=== PATIENT | female | born 1940 | race Caucasian/White ===

== ENCOUNTER → 2017-08-30 | Outpatient (CLI) | payer MEDICARE, OTHER | LOC: LAB 09:04 | PROVIDERS: ATTEND Internal Medicine | DX: E27.40 Unspecified adrenocortical insufficiency (principal) ==

== ENCOUNTER → 2017-09-06 | Outpatient (CLI) | payer MEDICARE, OTHER ==
[~2017-09-06] VITALS: Ht 170.2 cm; Wt 70.3 kg
[~2017-09-06] MED LIST: COSYNTROPIN 0.25 MG/ML (CORTROSYN) VIAL IV ONE
[2017-09-06 09:50] VITALS: BP 122/90
== END ==
LOC: SDC 07:32
PROVIDERS: ATTEND Internal Medicine
DX: E27.40 Unspecified adrenocortical insufficiency (principal)
CPT/HCPCS: 36415; 82533; 96372

== ENCOUNTER 2017-12-06 09:22 | Emergency (ER) | payer MEDICARE, OTHER ==
[~2017-12-06] VITALS: Ht 170.2 cm; Wt 68.0 kg
--- OUTSIDE RECORDS SUMMARY | 2017-12-06 09:29 | XMS REPORT ---
Author Author JOSE MURGUIA [facility] Address [address] [place] [address] Care Team Providers Care Process Lead Name Role Phone JOSE MURGUIA Unavailable PROBLEMS Type Condition ICD9-CM Code [id number] Code Onset Dates Condition Status SNOMED Code Problem History of thyroid disease Z86.39 Active 030000618 Problem Sacrococcygeal disorders, not elsewhere classified M53.3 Active 161477867 Problem Lumbago with sciatica, right side M54.41 Active 232915749 Problem Benign essential hypertension I10 Active 3449981 Problem Chronic fatigue R53.82 Active 65573096 Problem Hypertriglyceridemia E78.1 Active 070390138 Problem Neuropathy G62.9 Active 923789359 ALLERGIES No Known Allergies SOCIAL HISTORY Never Assessed PLAN OF CARE Activity Details Follow Up pending lab results Reason: VITAL SIGNS Height 65 in 2016-11-29 Weight 140.6 lbs 2016-11-29 Temperature 97.1 degrees Fahrenheit 2016-11-29 Heart Rate 72 bpm 2016-11-29 Respiratory Rate 18 2016-11-29 BMI 23.39 kg/m2 2016-11-29 Blood pressure systolic 128 mmHg 2016-11-29 Blood pressure diastolic 78 mmHg 2016-11-29 MEDICATIONS Medication Instructions Dosage Frequency Start Date End Date Duration Status Bystolic 10 MG Orally Once a day 1 tablet 24h Active HydrALAZINE HCl 25 MG Orally as directed- only when B/P is greater than 180/ Active Gabapentin 300 MG Orally Three times a day 1 capsule 8h Active Ondansetron 4 MG Orally every 8 hrs 1 tablet on the tongue and allow to dissolve 8h Active RESULTS Name Result Date Reference Range THYROID ANTIBODIES 2016-11-29 Thyroid Peroxidase (TPO) Ab 11 0-34 Thyroglobulin Antibody CBC 2016-11-29 WBC 7.3 3.4-10.8 RBC 4.04 3.77-5.28 Hemoglobin 11.7 11.1-15.9 Hematocrit 34.7 34.0-46.6 MCV 86 79-97 MCH 29.0 26.6-33.0 MCHC 33.7 31.5-35.7 RDW 13.9 12.3-15.4 Platelets 266 150-379 Neutrophils 62 Lymphs 32 Monocytes 6 Eos 0 Basos 0 Immature Cells Neutrophils (Absolute) 4.5 1.4-7.0 Lymphs (Absolute) 2.3 0.7-3.1 Monocytes(Absolute) 0.4 0.1-0.9 Eos (Absolute) 0.0 0.0-0.4 Baso (Absolute) 0.0 0.0-0.2 Immature Granulocytes 0 Immature Grans (Abs) 0.0 0.0-0.1 NRBC Hematology Comments: CMP 2016-11-29 Bilirubin, Total 0.5 0.0-1.2 THYROID ANTIBODIES 2016-11-29 Thyroid Peroxidase (TPO) Ab 11 0-34 Thyroglobulin Antibody 0.1 0.0-0.9 THYROID ANALYZER 2016-11-29 TSH 1.040 0.450-4.500 VITAMIN B12 2016-11-29 Vitamin B12 1802 211-946 CBC 2016-11-29 WBC 7.3 3.4-10.8 RBC 4.04 3.77-5.28 Hemoglobin 11.7 11.1-15.9 Hematocrit 34.7 34.0-46.6 MCV 86 79-97 MCH 29.0 26.6-33.0 MCHC 33.7 31.5-35.7 RDW 13.9 12.3-15.4 Platelets 266 150-379 Neutrophils 62 Lymphs 32 Monocytes 6 Eos 0 Basos 0 Neutrophils (Absolute) 4.5 1.4-7.0 Lymphs (Absolute) 2.3 0.7-3.1 Monocytes(Absolute) 0.4 0.1-0.9 Eos (Absolute) 0.0 0.0-0.4 Baso (Absolute) 0.0 0.0-0.2 Immature Granulocytes 0 Immature Grans (Abs) 0.0 0.0-0.1 VITAMIN D, 25-H 2016-11-29 Vitamin D, 25-Hydroxy 70.9 30.0-100.0 [facility] 2016-11-29 Glucose, Serum 94 65-99 BUN 10 8-27 Creatinine, Serum 0.83 0.57-1.00 eGFR If NonAfricn Am 68 >59 eGFR If Africn Am 79 >59 BUN/Creatinine Ratio 12 11-26 Sodium, Serum 133 134-144 Potassium, Serum 4.5 3.5-5.2 Chloride, Serum 92 96-106 Carbon Dioxide, Total 21 18-29 Calcium, Serum 9.9 8.7-10.3 Protein, Total, Serum 7.5 6.0-8.5 Albumin, Serum 4.8 3.5-4.8 Globulin, Total 2.7 1.5-4.5 A/G Ratio 1.8 1.2-2.2 Bilirubin, Total 0.5 0.0-1.2 Alkaline Phosphatase, S 86 39-117 AST (SGOT) 41 0-40 ALT (SGPT) 34 0-32 HEPATITIS PROFILE 2016-11-29 Hep A Ab, IgM Negative Negative HBsAg Screen Negative Negative Hep B Core Ab, IgM Negative Negative Hep C Virus Ab <0.1 0.0-0.9 Written Authorization 2016-11-29 Written Authorization PROCEDURES Procedure Date Ordered Result Body Site THER/PROPH/DIAG INJ, SC/IM November 29, 2016 ROUTINE VENIPUNCTURE 2016-11-29 N/A COMPLETE CBC W/AUTO DIFF WBC November 29, 2016 VITAMIN B-12 November 29, 2016 THYROGLOBULIN ANTIBODY November 29, 2016 B12, VITAMIN (UP TO 1000 MCG) November 29, 2016 ASSAY THYROID STIM HORMONE November 29, 2016 COMPREHEN METABOLIC PANEL November 29, 2016 MICROSOMAL ANTIBODY November 29, 2016 ASSAY OF VITAMIN D November 29, 2016 IMMUNIZATIONS Vaccine Route Administration Date Status B12, VITAMIN (UP TO 1000 MCG) IM Intramuscular November 29, 2016 Administered MEDICAL (GENERAL) HISTORY Type Description Date Medical History HTN Medical History Neuropathy 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
--- OUTSIDE RECORDS SUMMARY | 2017-12-06 09:29 | XMS REPORT ---
Author Author JANAY HUTCHINS Organization [facility] Address Unknown Phone Unavailable Care Team Providers Care Sample Case Porter Name Role Phone JANAY HUTCHINS Unavailable Unavailable PROBLEMS Type Condition ICD9-CM Code [id number] Code Onset Dates Condition Status SNOMED Code Problem History of thyroid disease Z86.39 Active 269842366 Problem Sacrococcygeal disorders, not elsewhere classified M53.3 Active 744598230 Problem Lumbago with sciatica, right side M54.41 Active 886936464 Problem Benign essential hypertension I10 Active 5591752 Problem Chronic fatigue R53.82 Active 36128574 Problem Hypertriglyceridemia E78.1 Active 721852231 Problem Neuropathy G62.9 Active 954501767 ALLERGIES No Information SOCIAL HISTORY Never Assessed PLAN OF CARE VITAL SIGNS MEDICATIONS No Known Medications RESULTS No Results PROCEDURES No Known procedures IMMUNIZATIONS No Known Immunizations MEDICAL (GENERAL) HISTORY Type Description Date Medical History HTN Medical History Neuropathy 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
--- OUTSIDE RECORDS SUMMARY | 2017-12-06 09:29 | XMS REPORT ---
Author Author OLIVIA THORNE Organization [facility] Address [address] [place] [address] Care Team Providers Care Aerial Survey Technician Name Role Phone OLIVIA THONRE Unavailable PROBLEMS Type Condition ICD9-CM Code YLU39-IC Code Onset Dates Condition Status SNOMED Code Problem History of thyroid disease Z86.39 Active 881611991 Problem Sacrococcygeal disorders, not elsewhere classified M53.3 Active 839164161 Problem Lumbago with sciatica, right side M54.41 Active 667530193 Problem Benign essential hypertension I10 Active 5200507 Problem Chronic fatigue R53.82 Active 18500052 Problem Hypertriglyceridemia E78.1 Active 537142650 Problem Neuropathy G62.9 Active 415511176 ALLERGIES No Known Allergies SOCIAL HISTORY Never Assessed PLAN OF CARE Activity Details Follow Up 4 Weeks. Reason:neuropathy VITAL SIGNS Height 65 in 2016-12-17 Weight 140.0 lbs 2016-12-17 Temperature 97.4 degrees Fahrenheit 2016-12-17 Heart Rate 76 bpm 2016-12-17 Respiratory Rate 18 2016-12-17 BMI 23.29 kg/m2 2016-12-17 Blood pressure systolic 136 mmHg 2016-12-17 Blood pressure diastolic 76 mmHg 2016-12-17 MEDICATIONS Medication Instructions Dosage Frequency Start Date End Date Duration Status Bystolic 10 mg Orally Once a day 1 tablet 24h 0 days Active Viactiv 500-500-40 MG-UNT-MCG Orally Once a day at night 3 tablet with a meal Active Ondansetron 4 MG Orally every 8 hrs 1 tablet on the tongue and allow to dissolve 8h 0 days Active Vitamin C 1000 MG Orally twice a day 1 tablet 12h Active Vitamin D3 5000 UNIT Orally Once a day 1 capsule 24h Active Garlic 1000 MG Orally Once a day 5 24h Active Biotin w/ Vitamins C & E 1250-7.5-7.5 MCG-MG-UNT Orally Once a day 2 24h Active HydrALAZINE HCl 25 MG Orally as directed- only when B/P is greater than 180/ 1 tablet with food 0 days Active Gabapentin 300 MG Orally Three times a day 2 capsules 8h 30 days Active Oregano 40 mg Orally Once a day 2 24h Active RESULTS No Results PROCEDURES No Known procedures IMMUNIZATIONS No Known Immunizations MEDICAL (GENERAL) HISTORY Type Description Date Medical History HTN Medical History Neuropathy 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
--- OUTSIDE RECORDS SUMMARY | 2017-12-06 09:30 | XMS REPORT ---
Author Author OLIVIA THORNE Organization [facility] Address [address] [place] [address] Care Team Providers Care Die Cast Die Maker Name Role Phone OLIVIA THORNE Unavailable PROBLEMS Type Condition ICD9-CM Code [id number] Code Onset Dates Condition Status SNOMED Code Problem History of thyroid disease Z86.39 Active 518242253 Problem Sacrococcygeal disorders, not elsewhere classified M53.3 Active 299048674 Problem Lumbago with sciatica, right side M54.41 Active 236770254 Problem Benign essential hypertension I10 Active 7040694 Problem Chronic fatigue R53.82 Active 81774696 Problem Hypertriglyceridemia E78.1 Active 693840337 Problem Neuropathy G62.9 Active 136222006 ALLERGIES Substance Reaction Event Type Date Status Lisinopril cough Drug Allergy Feb, Active ENCOUNTERS Encounter Location Date Diagnosis [address] [id number] [id number] Apr, Elevated serum creatinine R79.89 ; Sacrococcygeal disorders, not elsewhere classified M53.3 ; Lumbago with sciatica, right side M54.41 ; Verbosity and circumstantial detail obscuring reason for contact R46.7 ; Hypertriglyceridemia E78.1 ; Neuropathy G62.9 and Benign essential hypertension I10 [address] [id number] [id number] Mar, Elevated serum creatinine R79.[address] [id number] [id number] Mar, Thyroid disease E07.9 ; Chronic fatigue R53.82 ; Neuropathy G62.9 ; Benign essential hypertension I10 ; Sacrococcygeal disorders, not elsewhere classified M53.3 and Lumbago with sciatica, right side M54.[address] [id number] [id number] Feb, Neuropathy G62.9 [facility] [address] [id number] [id number] Feb, Neuropathy G62.9 ; Abnormal levels of other serum enzymes R74.8 ; Benign essential hypertension I10 and Hypertriglyceridemia E78.1 [facility] [address] [facility] [id number] [id number] January, Neuropathy G62.9 ; Benign essential hypertension I10 and Abnormal levels of other serum enzymes R74.8 [facility] [address] [facility] [id number] [address] Dec, [facility] [id number] [id number] Dec, Neuropathy G62.9 and Benign essential hypertension I10 [address] [facility] [address] [id number] [place] [id number] Nov, Abnormal levels of other serum enzymes R74.8 and Benign essential hypertension I10 [facility] [address] [id number] [id number] Nov, History of thyroid disease Z86.39 ; Confusion R41.0 ; Chronic fatigue R53.82 ; Benign essential hypertension I10 and Neuropathy G62.[address] [facility] [address] [id number] [place] [id number] Nov, [address] [id number] [place] [id number] Nov, Abnormal levels of other serum enzymes R74.8 IMMUNIZATIONS No Known Immunizations SOCIAL HISTORY Never Assessed REASON FOR VISIT Neuropathy follow up Venkat VELASQUEZ PLAN OF CARE Activity Details Follow Up 1 Months Reason:CHM neuropathy/HTN VITAL SIGNS Height 65 in 2017-02-13 Weight 150.1 lbs 2017-02-13 Temperature 98.3 degrees Fahrenheit 2017-02-13 Heart Rate 64 bpm 2017-02-13 Respiratory Rate 18 2017-02-13 BMI 24.98 kg/m2 2017-02-13 Blood pressure systolic 128 mmHg 2017-02-13 Blood pressure diastolic 70 mmHg 2017-02-13 MEDICATIONS Medication Instructions Dosage Frequency Start Date End Date Duration Status Biotin w/ Vitamins C & E 1250-7.5-7.5 MCG-MG-UNT Orally Once a day 2 24h Active Bystolic 10 mg Orally Once a day 1 tablet 24h 0 days Active Gabapentin 300 MG Orally Three times a day 2 capsules 8h Active Garlic 1000 MG Orally Once a day 5 24h Active HydrALAZINE HCl 25 MG Orally as directed- only when B/P is greater than 180/ 1 tablet with food 0 days Active Viactiv 500-500-40 MG-UNT-MCG Orally Once a day at night 3 tablet with a meal Active Ondansetron 4 MG Orally every 8 hrs 1 tablet on the tongue and allow to dissolve 8h 0 days Active Amitriptyline HCl 25 MG Orally Once a day at bedtime 2 tablets 0 Active Vitamin D3 5000 UNIT Orally Once a day 1 capsule 24h Active Oregano 40 mg Orally Once a day 2 24h Active Vitamin C 1000 MG Orally twice a day 1 tablet 12h Active RESULTS No Results PROCEDURES No Known procedures INSTRUCTIONS MEDICATIONS ADMINISTERED No Known Medications MEDICAL (GENERAL) HISTORY Type Description Date Medical History HTN Medical History Neuropathy 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
--- OUTSIDE RECORDS SUMMARY | 2017-12-06 09:30 | XMS REPORT ---
Author Author OLIVIA THORNE Organization [facility] Address [address] [place] [address] Care Team Providers Care Egg Processing Supervisor Name Role Phone OLIVIA HTORNE Unavailable PROBLEMS Type Condition ICD9-CM Code [id number] Code Onset Dates Condition Status SNOMED Code Problem History of thyroid disease Z86.39 Active 937647455 Problem Sacrococcygeal disorders, not elsewhere classified M53.3 Active 905038600 Problem Lumbago with sciatica, right side M54.41 Active 709946470 Problem Benign essential hypertension I10 Active 1488186 Problem Chronic fatigue R53.82 Active 59043746 Problem Hypertriglyceridemia E78.1 Active 493157733 Problem Neuropathy G62.9 Active 611050761 ALLERGIES No Known Allergies SOCIAL HISTORY Never Assessed PLAN OF CARE Activity Details Follow Up 4 Weeks Reason:CHM Neuropathy VITAL SIGNS Height 65 in 2017-01-16 Weight 148.2 lbs 2017-01-16 Temperature 97.6 degrees Fahrenheit 2017-01-16 Heart Rate 60 bpm 2017-01-16 Respiratory Rate 18 2017-01-16 BMI 24.66 kg/m2 2017-01-16 Blood pressure systolic 130 mmHg 2017-01-16 Blood pressure diastolic 60 mmHg 2017-01-16 MEDICATIONS Medication Instructions Dosage Frequency Start Date End Date Duration Status Garlic 1000 MG Orally Once a day 5 24h Active Biotin w/ Vitamins C & E 1250-7.5-7.5 MCG-MG-UNT Orally Once a day 2 24h Active Oregano 40 mg Orally Once a day 2 24h Active Bystolic 10 mg Orally Once a day 1 tablet 24h 0 days Active Vitamin D3 5000 UNIT Orally Once a day 1 capsule 24h Active Vitamin C 1000 MG Orally twice a day 1 tablet 12h Active Amitriptyline HCl 25 MG Orally Once a day at bedtime 1 tablet January, 30 day(s) Active HydrALAZINE HCl 25 MG Orally as directed- only when B/P is greater than 180/ 1 tablet with food 0 days Active Gabapentin 300 MG Orally Three times a day 2 capsules 8h 30 days Active Viactiv 500-500-40 MG-UNT-MCG Orally Once a day at night 3 tablet with a meal Active Ondansetron 4 MG Orally every 8 hrs 1 tablet on the tongue and allow to dissolve 8h 0 days Active RESULTS Name Result Date Reference Range LIPID PANEL 2017-01-16 Cholesterol, Total 183 100-199 Triglycerides 253 0-149 HDL Cholesterol 58 >39 VLDL Cholesterol Varinder 51 5-40 LDL Cholesterol Calc 74 0-99 Comment: CMP 2017-01-16 Glucose, Serum 78 65-99 BUN 17 8-27 Creatinine, Serum 0.82 0.57-1.00 eGFR If NonAfricn Am 69 >59 eGFR If Africn Am 79 >59 BUN/Creatinine Ratio 21 12-28 Sodium, Serum 141 134-144 Potassium, Serum 4.0 3.5-5.2 Chloride, Serum 102 96-106 Carbon Dioxide, Total 23 18-29 Calcium, Serum 9.4 8.7-10.3 Protein, Total, Serum 7.2 6.0-8.5 Albumin, Serum 4.6 3.5-4.8 Globulin, Total 2.6 1.5-4.5 A/G Ratio 1.8 1.2-2.2 Bilirubin, Total 0.3 0.0-1.2 Alkaline Phosphatase, S 86 39-117 AST (SGOT) 24 0-40 ALT (SGPT) 15 0-32 PROCEDURES Procedure Date Ordered Result Body Site COMPREHEN METABOLIC PANEL January 16, 2017 VENIPUNCT, ROUTINE* January 16, 2017 LIPID PANEL January 16, 2017 IMMUNIZATIONS No Known Immunizations MEDICAL (GENERAL) HISTORY Type Description Date Medical History HTN Medical History Neuropathy 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
--- OUTSIDE RECORDS SUMMARY | 2017-12-06 09:30 | XMS REPORT ---
Author Author JOSE MURGUIA [facility] Address [address] [place] [address] Care Team Providers Care Front Office Director Name Role Phone JOSE MURGUIA Unavailable PROBLEMS Type Condition ICD9-CM Code [id number] Code Onset Dates Condition Status SNOMED Code Problem History of thyroid disease Z86.39 Active 594312460 Problem Sacrococcygeal disorders, not elsewhere classified M53.3 Active 672848307 Problem Lumbago with sciatica, right side M54.41 Active 217732797 Problem Benign essential hypertension I10 Active 7409350 Problem Chronic fatigue R53.82 Active 87135671 Problem Hypertriglyceridemia E78.1 Active 340744144 Problem Neuropathy G62.9 Active 555502356 ALLERGIES No Information SOCIAL HISTORY Never Assessed PLAN OF CARE VITAL SIGNS MEDICATIONS No Known Medications RESULTS No Results PROCEDURES Procedure Date Ordered Result Body Site ACUTE HEPATITIS PANEL November 29, 2016 IMMUNIZATIONS No Known Immunizations MEDICAL (GENERAL) HISTORY Type Description Date Medical History HTN Medical History Neuropathy 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
[2017-12-06 09:49] LABS: BASOPHILS % (AUTO) 0 % (0-10); EOSINOPHILS % (AUTO) 0 % (0-10); HEMATOCRIT 33 % (35-52); HEMOGLOBIN 11.3 G/DL (11.5-16.0); LYMPHOCYTES # (AUTO) 1.8 X 10^3 (1.0-4.0); LYMPHOCYTES % (AUTO) 15 % (12-44); MEAN CORPUSCULAR HEMOGLOBIN 30 PG (25-34); MEAN CORPUSCULAR HGB CONC 35 G/DL (32-36); MEAN CORPUSCULAR VOLUME 86 FL (80-99); MEAN PLATELET VOLUME 9.3 FL (7.4-10.4); MONOCYTES # (AUTO) 0.7 X 10^3 (0.0-1.0); MONOCYTES % (AUTO) 6 % (0-12); NEUTROPHILS # (AUTO) 9.7 X 10^3 (1.8-7.8); NEUTROPHILS % (AUTO) 80 % (42-75); PLATELET COUNT 269 10^3/uL (130-400); RED BLOOD COUNT 3.82 10^6/uL (4.35-5.85); RED CELL DISTRIBUTION WIDTH 13.2 % (10.0-14.5); WHITE BLOOD COUNT 12.2 10^3/uL (4.3-11.0)
[2017-12-06 09:50] LABS: BILIRUBIN,URINE NEGATIVE (NEGATIVE); CLARITY,URINE SLIGHTLY CLOUDY; COLOR,URINE YELLOW; GLUCOSE, URINE (UA) NEGATIVE (NEGATIVE); KETONES,URINE NEGATIVE (NEGATIVE); LEUKOCYTE ESTERASE ,URINE 2+ (NEGATIVE); NITRITE,URINE NEGATIVE (NEGATIVE); PH,URINE 6 (5-9); PROTEIN,URINE 1+ (NEGATIVE); UROBILINOGEN,URINE NORMAL (NORMAL)
[2017-12-06 10:01] LABS: BACTERIA,URINE FEW /HPF; YEAST,URINE N /HPF
[2017-12-06 10:06] LABS: ALBUMIN 4.6 GM/DL (3.2-4.5); BILIRUBIN,TOTAL 0.6 MG/DL (0.1-1.0); CALCIUM 10.1 MG/DL (8.5-10.1); CREATININE SERUM 1.06 MG/DL (0.60-1.30); POTASSIUM 3.3 MMOL/L (3.6-5.0); TOTAL PROTEIN 7.8 GM/DL (6.4-8.2)
--- NOTE | 2017-12-06 11:46 | ED GI ---
General Chief Complaint: Abdominal/GI Problems Stated Complaint: MULTIPLE COMPLAINTS Nursing Triage Note: TO ROOM [address] FERNANDEZ OFFICE. JOSE RAUL CALLED ET STATES SHE CAME TO HIM WITH ACUTE ONSET OF NAUSEA. FOUND PT TO HAVE TENDERNESS OVER THE GALLBLADDER REGION, FEVER OF 99, AND ACTING CONFUSED. ALSO STATES SHE HAD A CHIROPRACTOR MANIPULATE HER BACK 2 MONTHS AGO AND HAS HAD PERIODS OF INC WITH STOOL AND BLADDER SINCE. Sepsis Screen: No Definite Risk Source of Information: Patient Exam Limitations: No Limitations (SARTHAK CHEUNG MD) History of Present Illness Date Seen by Provider: Dec 06, 2017 Time Seen by Provider: 11:42 Initial Comments The patient is a 76-year-old white female referred here by Dr. Noguera's office. She is a very circuitous history psychotherapist counselor. She reports that she has had difficulties with low back pain and diarrhea since she had a manipulation 2 months ago. This was performed chiropractic office by a provider who was a former college linebacker. She has had 3-4 loose stools per day. She is had to give up eating fiber. She has seen no blood. She also states that she has spina bifida occulta. She apparently had right upper quadrant pain to palpation Dr. Noguera's office but exhibits none here. She now complains of a headache. Timing/Duration: Other Severity/Quality: Mild, Moderate Location: Suprapubic Radiation: No Radiation (SARTHAK CHEUNG MD) Allergies and Home Medications Allergies Coded Allergies: No Known Drug Allergies (Unverified , 09/06/17) Home Medications Cephalexin 500 Mg Capsule, 500 MG PO TID Prescribed by: JASMIN MOSS on 12/06/17 1423 Ondansetron 4 Mg Tab.rapdis, 4 MG SL Q4H PRN for NAUSEA/VOMITING-1ST LINE Prescribed by: JASMIN MOSS on 12/06/17 1423 Patient Home Medication List Home Medication List Reviewed: Yes (JASMIN MEANS MD) Review of Systems Constitutional: see HPI EENTM: No Symptoms Reported Respiratory: No Symptoms Reported Cardiovascular: No Symptoms Reported Gastrointestinal: See HPI Genitourinary: No Symptoms Reported Musculoskeletal: no symptoms reported Skin: no symptoms reported Psychiatric/Neurological: No Symptoms Reported Endocrine: No Symptoms Reported Hematologic/Lymphatic: No Symptoms Reported (SARTHAK CHEUNG MD) Past Nlnqwuv-Powziy-Mcoqpz Hx Patient Social History Recent Foreign Travel: No Contact w/Someone Who Travel: No Recent Infectious Disease Expo: No Recent Hopitalizations: No (SARTHAK CHEUNG MD) Immunizations Up To Date Date of Pneumonia Vaccine: Sep 02, 2015 (SARTHAK CHEUNG MD) Surgeries History of Surgeries: Yes Surgeries: Hysterectomy (SARTHAK CHEUNG MD) Respiratory History of Respiratory Disorde: No (SARTHAK CHEUNG MD) Cardiovascular History of Cardiac Disorders: Yes Cardiac Disorders: Hypertension (SARTHAK CHEUNG MD) Neurological Neurological Disorders: Neuropathy (SARTHAK CHEUNG MD) Reproductive System Hx Reproductive Disorders: No (SARTHAK CHEUNG MD) Genitourinary History of Genitourinary Disor: No (SARTHAK CHEUNG MD) Gastrointestinal History of Gastrointestinal Di: No (SARTHAK CHEUNG MD) Musculoskeletal History of Musculoskeletal Dis: Yes Musculoskeletal Disorders: Chronic Back Pain (SARTHAK CHEUNG MD) Endocrine History of Endocrine Disorders: No (SARTHAK CHEUNG MD) HEENT History of HEENT Disorders: No (SARTHAK CHEUNG MD) Cancer History of Cancer: No Cancer: Thyroid Did You Recieve Any Treatments: Yes Type of Tx Receive: Radiation (SARTHAK CHEUGN MD) Psychosocial History of Psychiatric Problem: No (SARTHAK CHEUNG MD) Integumentary History of Skin or Integumenta: No (SARTHAK CHEUNG MD) Blood Transfusions History of Blood Disorders: No (SARTHAK CHEUNG MD) Physical Exam Vital Signs VS - Last 72 Hours, by Label 12/06/17 12/06/17 12/06/17 09:45 10:51 14:29 Temp 99.3 99.7 98.0 Pulse 77 70 Resp 18 16 B/P (MAP) 135/57 (83) 149/73 Pulse Ox 97 98 (JASMIN MEANS MD) Vital Signs Capillary Refill : Less Than 3 Seconds (SARTHAK CHEUNG MD) General Appearance: WD/WN, no apparent distress HEENT: normal ENT inspection Neck: full range of motion Respiratory: chest non-tender, lungs clear, normal breath sounds, no respiratory distress, no accessory muscle use Cardiovascular: normal peripheral pulses, regular rate, rhythm, no edema, no gallop, no JVD, no murmur Gastrointestinal: normal bowel sounds, non tender, soft, no organomegaly, no pulsatile mass Extremities: normal range of motion, non-tender, normal inspection, no pedal edema, no calf tenderness Back: normal inspection, no CVA tenderness Neurologic/Psychiatric: neuropsychology division chief II-XII nml as tested, no motor/sensory deficits, alert, normal mood/affect, oriented x 3 Skin: normal color, warm/dry Lymphatic: no adenopathy (SARTHAK CHEUNG MD) Progress/Results/Core Measures Results/Orders Lab Results Laboratory Tests Test 12/06/17 09:35 12/06/17 09:40 Range/Units Urine Color YELLOW Urine Clarity SLIGHTLY CLOUDY Urine pH 6 5-9 Urine Specific [place] 1.015 L 1.016-1.022 Urine Protein 1+ H NEGATIVE Urine Glucose (UA) NEGATIVE NEGATIVE Urine Ketones NEGATIVE NEGATIVE Urine Nitrite NEGATIVE NEGATIVE Urine Bilirubin NEGATIVE NEGATIVE Urine Urobilinogen NORMAL NORMAL MG/DL Urine Leukocyte Esterase 2+ H NEGATIVE Urine RBC (Auto) NEGATIVE NEGATIVE Urine RBC NONE /HPF Urine WBC 2-5 /HPF Urine Squamous Epithelial Cells 5-10 /HPF Urine Crystals NONE /LPF Urine Bacteria FEW H /HPF Urine Casts NONE /LPF Urine Mucus SMALL H /LPF Urine Yeast N /HPF Urine Culture Indicated NO White Blood Count 12.2 H 4.3-11.0 10^3/uL Red Blood Count 3.82 L 4.35-5.85 10^6/uL Hemoglobin 11.3 L 11.5-16.0 G/DL Hematocrit 33 L 35-52 % Mean Corpuscular Volume 86 80-99 FL Mean Corpuscular Hemoglobin 30 25-34 PG Mean Corpuscular Hemoglobin Concent 35 32-36 G/DL Red Cell Distribution Width 13.2 10.0-14.5 % Platelet Count 269 130-400 10^3/uL Mean Platelet Volume 9.3 7.4-10.4 FL Neutrophils (%) (Auto) 80 H 42-75 % Lymphocytes (%) (Auto) 15 12-44 % Monocytes (%) (Auto) 6 0-12 % Eosinophils (%) (Auto) 0 0-10 % Basophils (%) (Auto) 0 0-10 % Neutrophils # (Auto) 9.7 H 1.8-7.8 X 10^3 Lymphocytes # (Auto) 1.8 1.0-4.0 X 10^3 Monocytes # (Auto) 0.7 0.0-1.0 X 10^3 Eosinophils # (Auto) 0.0 0.0-0.3 10^3/uL Basophils # (Auto) 0.0 0.0-0.1 10^3/uL Sodium Level 134 L 135-145 MMOL/L Potassium Level 3.3 L 3.6-5.0 MMOL/L Chloride Level 99 98-107 MMOL/L Carbon Dioxide Level 23 21-32 MMOL/L Anion Gap 12 5-14 MMOL/L Blood Urea Nitrogen 17 7-18 MG/DL Creatinine 1.06 0.60-1.30 MG/DL Estimat Glomerular Filtration Rate 50 BUN/Creatinine Ratio 16 Glucose Level 124 H 70-105 MG/DL Calcium Level 10.1 8.5-10.1 MG/DL Total Bilirubin 0.6 0.1-1.0 MG/DL Aspartate Amino Transf (AST/SGOT) 21 5-34 U/L Alanine Aminotransferase (ALT/SGPT) 16 0-55 U/L Alkaline Phosphatase 110 40-136 U/L Total Protein 7.8 6.4-8.2 GM/DL Albumin 4.6 H 3.2-4.5 GM/DL Lipase 30 8-78 U/L Thyroid Stimulating Hormone (TSH) 2.15 0.35-4.94 UIU/ML Free Thyroxine 0.93 0.70-1.48 NG/DL (JASMIN MEANS MD) My Orders Orders - JASMIN MEANS MD Lipase (12/06/17 12:20) Urine Culture (12/06/17 12:37) Thyroid Stimulating Hormone (12/06/17 12:48) Free T4 (Free Thyroxine) (12/06/17 12:48) Ketorolac Injection (Toradol Injection) (12/06/17 13:00) Ondansetron Injection (Zofran Injectio (12/06/17 13:00) Saline Lock/Iv-Start (12/06/17 12:49) Lactated Ringers (Lr 1000 Ml Iv Solution (12/06/17 12:49) Us Gallbladder [id number] (12/06/17 12:54) (JASMIN MEANS MD) Medications Given in ED Current Medications Medications Dose Ordered Sig/Earnestine Route Start Time Stop Time Status Last Admin Dose Admin Ketorolac Tromethamine 15 mg ONCE ONCE IVP 12/06/17 13:00 12/06/17 13:01 DC 12/06/17 12:57 15 MG Lactated Ringer's 1,000 ml @ 0 mls/hr Q0M ONCE IV 12/06/17 12:49 12/06/17 12:50 DC 12/06/17 12:56 1,000 MLS/HR Ondansetron HCl 4 mg ONCE ONCE IVP 12/06/17 13:00 12/06/17 13:01 DC 12/06/17 12:57 4 MG (JASMIN MEANS MD) Vital Signs/I&O Vital Sign - Last 12Hours 12/06/17 12/06/17 12/06/17 09:45 10:51 14:29 Temp 99.3 99.7 98.0 Pulse 77 70 Resp 18 16 B/P (MAP) 135/57 (83) 149/73 Pulse Ox 97 98 (JASMIN MEANS MD) Blood Pressure Mean: 83 Progress Note : Progress Note Care of this patient was assumed from Dr. Cheung at 18:10. Chart was reviewed along with labs and CT result. Patient was reportedly sent to the emergency room from Dr. Justin's office for further evaluation. Patient is unsure of the exact reasons for evaluation in the emergency room rather than outpatient evaluation. She thought perhaps he wanted to obtain an MRI. Patient reports having some lower extremity symptoms and bowel and bladder control problems after having a chiropractic treatment 2 months ago. I did speak with Dr. Noguera by phone. He was most concerned about questionable fever, nausea and right upper quadrant pain. He was concerned about gallbladder pathology. On my examination patient has no abdominal tenderness. Although patient's abdominal pain is better, she complains of persistent headache. Patient was treated with Toradol for headache, Zofran for nausea, and IV fluids. She felt much better after treatment. Abdominal symptoms were further evaluated with gallbladder ultrasound which showed no acute pathology. Patient was ultimately dismissed home. There are subtle indication of possible urinary tract infection. Keflex was prescribed. (JASMIN MEANS MD) Diagnostic Imaging Diagonstic Imaging: Ultrasound Plain Films/CT/US/NM/MRI: abdomen Comments NAME: [facility] REC#: [id number] PT STATUS: DEP ER : 1940 PHYSICIAN: JASMIN MEANS MD ADMIT DATE: 12/06/17/ER Signed Date of Exam: 12/06/17 US GALLBLADDER [id number] PROCEDURE: US Gallbladder. TECHNIQUE: Multiple real-time grayscale images were obtained over the right upper quadrant in various projections. INDICATION: Abdominal pain. FINDINGS: The pancreas is unremarkable. The liver is normal in size. No discrete liver mass is identified. The portal vein is patent and demonstrates normal direction of flow. The gallbladder is without stones or sludge. No wall thickening or pericholecystic fluid is seen. There is no biliary ductal dilatation. The right kidney is unremarkable. There is no ascites. IMPRESSION: Unremarkable right upper quadrant ultrasound. There is no evidence of cholelithiasis or acute cholecystitis. Dictated by: Dictated on workstation # [id number] Dict: 12/06/17 1406 Trans: 12/06/17 1501 Interpreted by: RENA KATHLEEN MD Electronically signed by: RENA KATHLEEN MD 12/06/17 1501 Diagonstic Imaging: CT Plain Films/CT/US/NM/MRI: abdomen, pelvis Comments CT abdomen and pelvis viewed by me and report reviewed. See report below: NAME: [facility] REC#: [id number] PT STATUS: DEP ER : 1940 PHYSICIAN: SARTHAK CHEUNG MD ADMIT DATE: 12/06/17/ER Signed Date of Exam: 12/06/17 CT ABDOMEN/PELVIS WO PROCEDURE: CT abdomen and pelvis without contrast. TECHNIQUE: Multiple contiguous axial images were obtained through the abdomen and pelvis without the use of intravenous contrast. INDICATION: Abdominal pain. FINDINGS: The lung bases are clear. The liver and gallbladder appear unremarkable. There is no biliary dilatation. The pancreas appears unremarkable. The spleen and adrenal glands appear unremarkable. The kidneys, ureters and bladder appear unremarkable. No urinary tract stone or obstructive change is seen. There is diverticulosis without evidence of diverticulitis. No evidence of appendicitis or other focal inflammatory process. Uterus is absent. The abdominal aorta appears normal in caliber. There is no free fluid, free air or adenopathy. There is a grade I/2 degenerative anterior listhesis of L4 and L5 with degenerative disc disease. IMPRESSION: 1. No acute abnormality seen in the abdomen and pelvis. 2. Degenerative changes with grade I/2 degenerative anterior listhesis of L4 and L5. 3. Diverticulosis without evidence of diverticulitis. Dictated by: Dictated on workstation # [id number] Dict: 12/06/17 1218 Trans: 12/06/17 1542 Interpreted by: EM BUSTOS DO Electronically signed by: EM BUSTOS DO 12/06/17 154 (JASMIN MEANS MD) Departure Impression Impression: Primary Impression: Right upper quadrant pain Additional Impressions: Nausea Urinary tract infection Qualified Codes: N39.0 - Urinary tract infection, site not specified Acute headache Qualified Codes: R51 - Headache Disposition: 01 HOME, SELF-CARE Condition: Improved Departure-Patient Inst. Decision time for Depature: 14:18 (JASMIN MEANS MD) Referrals: BRUCE NOGUERA DO (PCP/Family) Primary Care Physician Patient Instructions: Acute Abdomen (Belly Pain), Adult (DC), Urinary Tract Infection, Adult (DC) Add. Discharge Instructions: Drink plenty of clear liquids. Gradually advance your diet with small quantities of bland food as tolerated. Use Zofran (ondansetron) as prescribed for nausea and vomiting. Complete your antibiotics as prescribed and follow-up with Dr. Noguera early next week. Return to care if symptoms worsen. You may take ibuprofen up to 400 mg and or Tylenol (acetaminophen) up to 1000 mg 2 or 3 times a day for headache if needed. Discuss your bowel or bladder control issues, diarrhea, and leg symptoms with Dr. Noguera at your follow-up appointment. All discharge instructions reviewed with patient and/or family. Voiced understanding. Scripts Cephalexin (Keflex) 500 Mg Capsule 500 MG PO TID, #20 CAP Prov: JASMIN MEANS MD 12/06/17 Ondansetron (Zofran Odt) 4 Mg Tab.rapdis 4 MG SL Q4H Y for NAUSEA/VOMITING-1ST LINE, #10 TAB Prov: JASMIN MEANS MD 12/06/17 Copy Copies To 1: BRUCE NOGUERA RODNEY K MD Dec 06, 2017 11:46 JASMIN MEANS MD Dec 06, 2017 14:24
--- NOTE | 2017-12-06 12:25 | Diagnostic Imaging Report ---
PROCEDURE: CT abdomen and pelvis without contrast. TECHNIQUE: Multiple contiguous axial images were obtained through the abdomen and pelvis without the use of intravenous contrast. INDICATION: Abdominal pain. FINDINGS: The lung bases are clear. The liver and gallbladder appear unremarkable. There is no biliary dilatation. The pancreas appears unremarkable. The spleen and adrenal glands appear unremarkable. The kidneys, ureters and bladder appear unremarkable. No urinary tract stone or obstructive change is seen. There is diverticulosis without evidence of diverticulitis. No evidence of appendicitis or other focal inflammatory process. Uterus is absent. The abdominal aorta appears normal in caliber. There is no free fluid, free air or adenopathy. There is a grade I/2 degenerative anterior listhesis of L4 and L5 with degenerative disc disease. IMPRESSION: 1. No acute abnormality seen in the abdomen and pelvis. 2. Degenerative changes with grade I/2 degenerative anterior listhesis of L4 and L5. 3. Diverticulosis without evidence of diverticulitis. Dictated by: Dictated on workstation # [id number]
[2017-12-06] MEDS ORDERED: LACTATED RINGERS 1,000 ML IV ONE (12:49)
[2017-12-06] MEDS ORDERED: KETOROLAC 30 MG/ML VIAL IVP ONE (13:00)
[2017-12-06] MEDS ORDERED: ONDANSETRON 4 MG/2 ML (SDV) Z0FRAN IVP ONE (13:00)
[2017-12-06 13:23] LABS: FREE T4 (FREE THYROXINE) 0.93 NG/DL (0.70-1.48)
--- NOTE | 2017-12-06 14:10 | Diagnostic Imaging Report ---
PROCEDURE: US Gallbladder. TECHNIQUE: Multiple real-time grayscale images were obtained over the right upper quadrant in various projections. INDICATION: Abdominal pain. FINDINGS: The pancreas is unremarkable. The liver is normal in size. No discrete liver mass is identified. The portal vein is patent and demonstrates normal direction of flow. The gallbladder is without stones or sludge. No wall thickening or pericholecystic fluid is seen. There is no biliary ductal dilatation. The right kidney is unremarkable. There is no ascites. IMPRESSION: Unremarkable right upper quadrant ultrasound. There is no evidence of cholelithiasis or acute cholecystitis. Dictated by: Dictated on workstation # [id number]
[2017-12-06] MEDS ORDERED: CEPH-507 PO (14:23)
[2017-12-06] MEDS ORDERED: ONDA4TAB8 SL (14:23)
[2017-12-06 14:29] VITALS: BP 149/73
== END 2017-12-06 14:29 | disposition home or self-care (01) ==
LOC: EDUNIT# 09:22 → ER 09:26
DX: N39.0 Urinary tract infection, site not specified (principal); R51 Headache; I10 Essential (primary) hypertension; Q76.0 Spina bifida occulta; Z85.850 Personal history of malignant neoplasm of thyroid; Z90.710 Acquired absence of both cervix and uterus
CPT/HCPCS: 36415; 74176; 76705; 80053; 81000; 83690; 84439; 84443; 85025; 87088; 96361; 96374; 96375

== ENCOUNTER → 2017-12-12 | Outpatient (CLI) | payer MEDICARE, OTHER ==
[~2017-12-12] MED LIST changes: +CEPH-507 PO; -COSYNTROPIN 0.25 MG/ML (CORTROSYN) VIAL IV ONE; +ONDA4TAB8 SL
--- NOTE | 2017-12-12 13:04 | Diagnostic Imaging Report ---
PROCEDURE: MRI lumbar spine. TECHNIQUE: Multiplanar, multisequence MRI of the lumbar spine was performed without contrast. INDICATION: Back pain. There are no previous MRI examinations available for comparison. FINDINGS: The recent CT abdomen/pelvis exam of 12/06/17 did note a grade 1-2 spondylolisthesis of L4 with respect to L5. On the T2 sagittal images, the grade 1-2 spondylolisthesis of L4 with respect to L5 is again evident. There is also marked narrowing and desiccation of the disc at this level. Furthermore, there does appear to be severe trefoil stenosis at this level. The AP diameter of the thecal sac is narrowed to approximately 5.2 mm. There is also fairly severe narrowing of the neuroforamen bilaterally at this level. At the L5-S1 level, there is a disc bulge eccentric to the right. The disc does not produce central stenosis but is in close proximity to the exiting right nerve root and may encroach upon the nerve root. At the L3-L4 level, there is a slight disc bulge centrally. The AP diameter of the thecal sac is narrowed to 11.5 mm. There is only mild narrowing of the neuroforamen bilaterally. At L1-L2 and L2-L3, there is no evidence for spinal stenosis or nerve root encroachment. There is no abnormal signal arising from the cord or the vertebral bodies to indicate an acute abnormality. There is no sign of a paraspinal mass. IMPRESSION: 1. There is a grade 1-2 spondylolisthesis of L4 with respect to L5. There is also degenerative disc disease at this level and there is severe trefoil stenosis. There is also narrowing of the neuroforamen bilaterally. 2. There is a disc bulge eccentric to the right at L5-S1. While there is no evidence for central stenosis at this level, there may be encroachment of the exiting right nerve root. 3. The remainder of the lumbar spine is unremarkable for spinal stenosis or nerve root encroachment. 4. There is no sign of an acute bony abnormality or of a cord lesion. Dictated by: Dictated on workstation # [id number]
== END ==
LOC: RAD 09:21
PROVIDERS: ATTEND Internal Medicine
DX: M48.061 Spinal stenosis, lumbar region without neurogenic claudication (principal); M51.36 Other intervertebral disc degeneration, lumbar region; M51.27 Other intervertebral disc displacement, lumbosacral region; M43.16 Spondylolisthesis, lumbar region
CPT/HCPCS: 72148

== ENCOUNTER → 2018-01-31 | Outpatient (CLI) | payer MEDICARE, OTHER ==
--- NOTE | 2018-01-31 16:37 | Diagnostic Imaging Report ---
EXAMINATION: Left ankle at 02:30 p.m. INDICATION: Ankle pain. Three views were obtained. There are no prior studies available for comparison. FINDINGS: On the lateral view, there is a thin 1 x 6 mm calcific density along the anterior aspect of the anterior process of the talus. This may represent a small avulsion fracture. The age of this injury however is indeterminate. Clinical follow-up is recommended. No other fracture or acute bony abnormality is appreciated. The ankle mortise is not widened and the talar dome is smooth. There is mild soft tissue edema over the lateral aspect of the ankle joint. IMPRESSION: 1. The small avulsion fracture along the anterior aspect of the anterior process of the talus is indeterminate in age. Clinical follow-up is recommended. 2. There is no acute bony abnormality identified otherwise. Dictated by: Dictated on workstation # [id number]
== END ==
LOC: RAD 13:46
PROVIDERS: ATTEND Internal Medicine
DX: S92.152A Displaced avulsion fracture (chip fracture) of left talus, initial encounter for closed fracture (principal)
CPT/HCPCS: 73610

== ENCOUNTER → 2018-12-09 | Outpatient (CLI) | payer MEDICARE, OTHER ==
--- NOTE | 2018-12-09 16:30 | Diagnostic Imaging Report ---
PROCEDURE: MRI lumbar spine. TECHNIQUE: Multiplanar, multisequence MRI of the lumbar spine was performed without contrast. INDICATION: Low back pain and bilateral buttock pain, right greater, as well as bilateral leg pain and numbness. COMPARISON: Correlation is made with prior MRI of lumbar spine from 12/12/2017. FINDINGS: Curvature of the lumbar spine is normal. Anterolisthesis of L4 on L5 is similar to prior study. Vertebral body heights are maintained. The marrow signal intensity is unremarkable. No geographic marrow lesion or acute compression fracture is detected. Generalized disc desiccation is seen compatible with degenerative change. There is significant disc space narrowing at L4-L5, similar to prior exam. The conus is unremarkable at the T12-L1 level. T12-L1: Central canal is widely patent. Neural foramina are patent. L1-L2: Central canal and neural foramina are widely patent. L2-L3: There are some ligamentous thickening and facet changes. Central canal remains patent. Mild neural foraminal narrowing is seen bilaterally. L3-L4: Ligamentous thickening and facet changes are noted but central canal remains patent. There is [id number] left neural foraminal narrowing due to broad-based disc/osteophyte complex. L4-L5: Facet changes and ligamentous thickening as well as broad-based disc/osteophyte complex results in severe central canal stenosis. There is also severe bilateral lateral recess stenosis and bilateral neural foraminal stenosis. This is similar to prior exam. L5-S1: Broad-based disc/osteophyte complex is noted, asymmetric to the right. This does impinge upon the right S1 nerve root origin. Mild right neural foraminal narrowing is present as well. Central canal is patent. Paraspinous tissues are unremarkable. IMPRESSION: Lumbar spondylosis, most severe at the L4-L5 level where there is severe central canal, lateral recess and neural foraminal stenosis, similar to the examination from one year earlier. No acute compression fracture is detected. Dictated by: Dictated on workstation # [id number]
== END ==
LOC: RAD 13:32
PROVIDERS: ATTEND Internal Medicine
DX: M47.816 Spondylosis without myelopathy or radiculopathy, lumbar region (principal); M48.061 Spinal stenosis, lumbar region without neurogenic claudication
CPT/HCPCS: 72148

== ENCOUNTER → 2021-06-21 | Outpatient (CLI) | payer MEDICARE, OTHER ==
--- NOTE | 2021-06-21 15:40 | Diagnostic Imaging Report ---
INDICATION: Fall and neck pain. TIME OF EXAM: 2:41 p.m. FINDINGS: AP, odontoid, both oblique, as well as lateral views of the cervical spine were obtained. Alignment is normal. There is significant degenerative disc disease at the C4-C5, C5-C6, and C6-C7 levels, with disc space narrowing and marginal spurring. No fractures are seen. Prevertebral tissues are within normal limits. Odontoid is intact. IMPRESSION: Cervical spondylosis. No acute bony abnormality is detected. Dictated by: Dictated on workstation # [id number]
== END ==
LOC: RAD 14:16
PROVIDERS: ATTEND Internal Medicine
DX: M50.123 Cervical disc disorder at C6-C7 level with radiculopathy (principal); M47.812 Spondylosis without myelopathy or radiculopathy, cervical region
CPT/HCPCS: 72050

== ENCOUNTER 2022-01-31 16:31 | Emergency (ER) | payer MEDICARE, OTHER ==
[~2022-01-31] VITALS: Ht 165 cm; Wt 66.0 kg
[2022-01-31] MEDS ORDERED: NS IV 1000 ML 1,000 ML IV ONE (17:15)
[2022-01-31 17:28] LABS: BASOPHILS % (AUTO) 0 % (0-10); EOSINOPHILS % (AUTO) 0 % (0-10); HEMATOCRIT 34 % (35-52); HEMOGLOBIN 11.3 g/dL (11.5-16.0); LYMPHOCYTES # (AUTO) 1.4 10^3/uL (1.0-4.0); LYMPHOCYTES % (AUTO) 36 % (12-44); MEAN CORPUSCULAR HEMOGLOBIN 29 pg (25-34); MEAN CORPUSCULAR HGB CONC 33 g/dL (32-36); MEAN CORPUSCULAR VOLUME 85 fL (80-99); MEAN PLATELET VOLUME 9.6 fL (9.0-12.2); MONOCYTES # (AUTO) 0.4 10^3/uL (0.0-1.0); MONOCYTES % (AUTO) 11 % (0-12); NEUTROPHILS # (AUTO) 2.1 10^3/uL (1.8-7.8); NEUTROPHILS % (AUTO) 53 % (42-75); PLATELET COUNT 207 10^3/uL (130-400); WHITE BLOOD COUNT 3.9 10^3/uL (4.3-11.0)
[2022-01-31 17:34] LABS: POTASSIUM 2.9 MMOL/L (3.6-5.0)
[2022-01-31 17:35] LABS: CALCIUM 8.9 MG/DL (8.5-10.1)
[2022-01-31 17:36] LABS: TOTAL PROTEIN 6.9 GM/DL (6.4-8.2)
[2022-01-31 17:38] LABS: BILIRUBIN,TOTAL 0.4 MG/DL (0.1-1.0)
[2022-01-31 17:40] LABS: CREATININE SERUM 0.98 MG/DL (0.60-1.30)
[2022-01-31] MEDS ORDERED: ONDANSETRON 4 MG/2 ML (SDV) Z0FRAN IVP ONE (18:00)
[2022-01-31] MEDS ORDERED: KCL 20 MEQ TAB (K-DUR) PO ONE (18:00)
--- NOTE | 2022-01-31 18:00 | ED General ---
General Chief Complaint: General Problems/Pain Stated Complaint: DEHYDRATED Nursing Triage Note: PT TO RM 9 WITH C/O BEING DEHYDRATED, RUNY NOSE AND WEAKNESS. PT SPOKE WITH DR BLUNT AND HE SUGGESTED TO COME TO THE ER IN [place]CERN FOR COVID Source of Information: Patient Exam Limitations: No Limitations History of Present Illness Date Seen by Provider: January 31, 2022 Time Seen by Provider: 17:38 Allergies and Home Medications Allergies Coded Allergies: No Known Drug Allergies (Unverified , 09/06/17) Patient Home Medication List Cephalexin (Keflex) 500 Mg Capsule, 500 MG PO TID Prescribed by: JASMIN MOSS on 12/06/17 1423 Ondansetron (Zofran Odt) 4 Mg Tab.rapdis, 4 MG SL Q4H PRN for NAUSEA/VOMITING- 1ST LINE Prescribed by: JASMIN MOSS on 12/06/17 1423 Past Ssjsdjk-Jrkbck-Kcepmn Hx Patient Social History Tobacco Use?: No Use of E-Cig and/or Vaping dev: No Substance use?: No Alcohol Use?: No Pt feels they are or have been: No Immunizations Up To Date First/Initial COVID19 Vaccinat: none Second COVID19 Vaccination Alvin: none Past Medical History Surgery/Hospitalization HX: HTN, NEUROPATHY HYSTO Surgeries: Yes Hysterectomy Respiratory: No Cardiac: Yes Hypertension Neuropathy Reproductive Disorders: No Genitourinary: No Gastrointestinal: No Musculoskeletal: Yes Chronic Back Pain Endocrine: No HEENT: No Cancer: No Thyroid Did You Recieve Any Treatments: Yes What Type of Treatment Did You: Radiation Psychosocial: No Integumentary: No Blood Disorders: No Physical Exam Vital Signs Vital Signs - First Documented 01/31/22 17:08 Temp 37.0 Pulse 60 Resp 18 B/P (MAP) 143/70 (94) Capillary Refill : Height, Weight, BMI Height: 5'7.00" Weight: 150lbs. 0.0oz. 68.535637on; 24.00 BMI Method:Estimated Progress/Results/Core Measures Suspected Sepsis SIRS Temperature: Pulse: 60 Respiratory Rate: 18 Laboratory Tests 01/31/22 17:16: White Blood Count 3.9L Blood Pressure 143 /70 Mean: 94 Laboratory Tests 01/31/22 17:16: Creatinine 0.98, Platelet Count 207, Total Bilirubin 0.4 Results/Orders Lab Results Laboratory Tests Test 01/31/22 16:51 01/31/22 17:16 Range/Units Influenza Type A (RT-PCR) Not Detected Not Detecte Influenza Type B (RT-PCR) Not Detected Not Detecte SARS-CoV-2 RNA (RT-PCR) Detected H Not Detecte White Blood Count 3.9 L 4.3-11.0 10^3/uL Red Blood Count 3.96 3.80-5.11 10^6/uL Hemoglobin 11.3 L 11.5-16.0 g/dL Hematocrit 34 L 35-52 % Mean Corpuscular Volume 85 80-99 fL Mean Corpuscular Hemoglobin 29 25-34 pg Mean Corpuscular Hemoglobin Concent 33 32-36 g/dL Red Cell Distribution Width 13.3 10.0-14.5 % Platelet Count 207 130-400 10^3/uL Mean Platelet Volume 9.6 9.0-12.2 fL Immature Granulocyte % (Auto) 0 % Neutrophils (%) (Auto) 53 42-75 % Lymphocytes (%) (Auto) 36 12-44 % Monocytes (%) (Auto) 11 0-12 % Eosinophils (%) (Auto) 0 0-10 % Basophils (%) (Auto) 0 0-10 % Neutrophils # (Auto) 2.1 1.8-7.8 10^3/uL Lymphocytes # (Auto) 1.4 1.0-4.0 10^3/uL Monocytes # (Auto) 0.4 0.0-1.0 10^3/uL Eosinophils # (Auto) 0.0 0.0-0.3 10^3/uL Basophils # (Auto) 0.0 0.0-0.1 10^3/uL Immature Granulocyte # (Auto) 0.0 0.0-0.1 10^3/uL Sodium Level 135 135-145 MMOL/L Potassium Level 2.9 L 3.6-5.0 MMOL/L Chloride Level 99 98-107 MMOL/L Carbon Dioxide Level 23 21-32 MMOL/L Anion Gap 13 5-14 MMOL/L Blood Urea Nitrogen 20 H 7-18 MG/DL Creatinine 0.98 0.60-1.30 MG/DL Estimat Glomerular Filtration Rate 57 BUN/Creatinine Ratio 20 Glucose Level 104 70-105 MG/DL Calcium Level 8.9 8.5-10.1 MG/DL Corrected Calcium 8.9 8.5-10.1 MG/DL Total Bilirubin 0.4 0.1-1.0 MG/DL Aspartate Amino Transf (AST/SGOT) 30 5-34 U/L Alanine Aminotransferase (ALT/SGPT) 19 0-55 U/L Alkaline Phosphatase 72 40-136 U/L Total Protein 6.9 6.4-8.2 GM/DL Albumin 4.0 3.2-4.5 GM/DL My Orders Orders - VALENTIN MENDEZ [employer] STOCK CLERK Cbc With Automated Diff (01/31/22 17:08) Comprehensive Metabolic Panel (01/31/22 17:08) Ua Culture If Indicated (01/31/22 17:08) Covid 19 Inhouse Test (01/31/22 17:08) Influenza A And B By Pcr (01/31/22 17:08) Chest 1 View, Ap/Pa Only (01/31/22 17:08) Ns Iv 1000 Ml (Sodium Chloride 0.9%) (01/31/22 17:15) Ed Iv/Invasive Line Start (01/31/22 17:08) Potassium Chloride (Tablet) (K Dur Table (01/31/22 18:00) Ondansetron Injection (Zofran Injectio (01/31/22 18:00) Bebtelovimab (Bebtelovimab) (01/31/22 18:45) Epinephrine 1 Mg Injection (Adrenalin I (01/31/22 18:45) Diphenhydramine Injection (Benadryl Inje (01/31/22 18:45) Ondansetron Injection (Zofran Injectio (01/31/22 18:45) Acetaminophen Tablet (Tylenol Tablet) (01/31/22 18:45) Medications Given in ED Current Medications Medications Dose Ordered Sig/Earnestine Route Start Time Stop Time Status Last Admin Dose Admin Ondansetron HCl 4 mg ONCE ONCE IVP 01/31/22 18:00 01/31/22 18:01 DC 01/31/22 17:59 4 MG Potassium Chloride 40 meq ONCE ONCE PO 01/31/22 18:00 01/31/22 18:01 DC 01/31/22 18:00 40 MEQ Sodium Chloride 1,000 ml @ 0 mls/hr Q0M ONCE IV 01/31/22 17:15 01/31/22 17:16 DC 01/31/22 17:23 1,000 MLS/HR Vital Signs/I&O 01/31/22 17:08 Temp 37.0 Pulse 60 Resp 18 B/P (MAP) 143/70 (94) Capillary Refill : Blood Pressure Mean: 94 Departure Impression Primary Impression: COVID-19 Additional Impression: Hypokalemia Disposition: 01 HOME, SELF-CARE Condition: Stable Departure-Patient Inst. Decision time for Depature: 17:54 Referrals: BRUCE BLUNT DO (PCP/Family) Primary Care Physician Patient Instructions: Hypokalemia (DC), COVID-19 (DC) Add. Discharge Instructions: Plan: 1. Make sure you are drinking plenty of fluids to stay hydrated. 2. You will need to isolate at home for the 5 days and then you will wear a mask while in public for five remaining days. 3. You received Bebtelovimab via IV in the ER. You have been provided fact sheet regarding this medication. 4. May take Tylenol or Ibuprofen as needed for pain/fever. 5. Return to ER if you experience any new, concerning, or worsening symptoms. All discharge instructions reviewed with patient and/or family. Voiced understanding. VALENTIN MENDEZ MEAT STOCK CLERK January 31, 2022 18:00
--- NOTE | 2022-01-31 18:06 | Diagnostic Imaging Report ---
INDICATION: Shortness of breath, COVID positive. TECHNIQUE: Frontal chest obtained at 06:01 p.m. FINDINGS: Heart and mediastinal silhouette are normal in appearance. There is no acute infiltrate or pneumothorax or pleural fluid. There are mild chronic-appearing increased interstitial markings. IMPRESSION: Mild chronic changes with no acute process in the chest. Dictated by: Dictated on workstation # [id number]
[2022-01-31] MEDS ORDERED: ONDANSETRON 4 MG/2 ML (SDV) Z0FRAN IV PRN (18:45)
[2022-01-31] MEDS ORDERED: diphenhydrAMINE 50 MG/ML INJ (BENADRYL) IV PRN (18:45)
[2022-01-31] MEDS ORDERED: ACETAMINOPHEN 500 MG TAB (TYLENOL) PO PRN (18:45)
[2022-01-31] MEDS ORDERED: BEBTELOVIMAB 175 MG/2 ML VIAL IV ONE (18:45)
[2022-01-31] MEDS ORDERED: EPINEPHrine INJECTION 1 MG/ML AMP IM PRN (18:45)
[2022-01-31 19:38] LABS: BILIRUBIN,URINE NEGATIVE (NEGATIVE); CLARITY,URINE SL CLOUDY; COLOR,URINE YELLOW; GLUCOSE, URINE (UA) NEGATIVE (NEGATIVE); KETONES,URINE TRACE (NEGATIVE); LEUKOCYTE ESTERASE ,URINE 1+ (NEGATIVE); NITRITE,URINE NEGATIVE (NEGATIVE); PROTEIN,URINE TRACE (NEGATIVE)
[2022-01-31 19:46] LABS: BACTERIA,URINE LARGE /HPF; RBC,URINE RARE /HPF; RENAL EPITHELIAL CELLS,URINE 0-2 /HPF
[2022-01-31 19:50] VITALS: BP 166/70
== END 2022-01-31 19:52 | disposition home or self-care (01) ==
LOC: EDUNIT# 16:31 → ER 16:33
DX: U07.1 COVID-19 (principal); E87.6 Hypokalemia
CPT/HCPCS: 36415; 71045; 80053; 81000; 85025; 87077; 87088; 87636

== ENCOUNTER 2022-03-03 20:35 | Emergency (ER) | payer MEDICARE, OTHER ==
[~2022-03-03] VITALS: Ht 170 cm; Wt 68.2 kg
[2022-03-03] MEDS ORDERED: LACTATED RINGERS 1,000 ML IV ONE (22:45)
--- NOTE | 2022-03-03 22:54 | ED General ---
General Stated Complaint: NAUSEA,POSS FEVER,BODY ACHES Source of Information: Patient History of Present Illness Date Seen by Provider: Mar 03, 2022 Time Seen by Provider: 22:37 Allergies and Home Medications Allergies Coded Allergies: No Known Drug Allergies (Unverified , 09/06/17) Patient Home Medication List Cephalexin (Keflex) 500 Mg Capsule, 500 MG PO TID Prescribed by: JASMIN MOSS on 12/06/17 1423 Ondansetron (Zofran Odt) 4 Mg Tab.rapdis, 4 MG SL Q4H PRN for NAUSEA/VOMITING- 1ST LINE Prescribed by: JASMIN MOSS on 12/06/17 1423 Past Bywcpcz-Bvklmm-Iwztxx Hx Immunizations Up To Date First/Initial COVID19 Vaccinat: none Second COVID19 Vaccination Alvin: none Past Medical History Surgery/Hospitalization HX: HTN, NEUROPATHY HYSTO Surgeries: Yes Hysterectomy Respiratory: No Cardiac: Yes Hypertension Neuropathy Reproductive Disorders: No Genitourinary: No Gastrointestinal: No Musculoskeletal: Yes Chronic Back Pain Endocrine: No HEENT: No Cancer: No Thyroid Did You Recieve Any Treatments: Yes What Type of Treatment Did You: Radiation Psychosocial: No Integumentary: No Blood Disorders: No Physical Exam Vital Signs Capillary Refill : Height, Weight, BMI Height: 5'7.00" Weight: 150lbs. 0.0oz. 68.873026xs; 24.00 BMI Method:Estimated Focused Exam Lactate Level 03/03/22 23:00: Lactic Acid Level 1.02 Lactic Acid Level Laboratory Tests Test 03/03/22 23:00 Lactic Acid Level 1.02 MMOL/L (0.50-2.00) Progress/Results/Core Measures Suspected Sepsis SIRS Temperature: Pulse: Respiratory Rate: Laboratory Tests 03/03/22 23:00: White Blood Count 8.5 Blood Pressure / Mean: 03/03/22 23:00: Lactic Acid Level 1.02 Laboratory Tests 03/03/22 23:00: Creatinine 1.07, INR Comment 1.0, Platelet Count 328, Total Bilirubin 0.8 Results/Orders Lab Results Laboratory Tests Test 03/03/22 23:00 03/04/22 01:10 Range/Units White Blood Count 8.5 4.3-11.0 10^3/uL Red Blood Count 3.72 L 3.80-5.11 10^6/uL Hemoglobin 10.7 L 11.5-16.0 g/dL Hematocrit 33 L 35-52 % Mean Corpuscular Volume 87 80-99 fL Mean Corpuscular Hemoglobin 29 25-34 pg Mean Corpuscular Hemoglobin Concent 33 32-36 g/dL Red Cell Distribution Width 13.3 10.0-14.5 % Platelet Count 328 130-400 10^3/uL Mean Platelet Volume 9.5 9.0-12.2 fL Immature Granulocyte % (Auto) 0 % Neutrophils (%) (Auto) 67 42-75 % Lymphocytes (%) (Auto) 25 12-44 % Monocytes (%) (Auto) 8 0-12 % Eosinophils (%) (Auto) 0 0-10 % Basophils (%) (Auto) 0 0-10 % Neutrophils # (Auto) 5.7 1.8-7.8 10^3/uL Lymphocytes # (Auto) 2.1 1.0-4.0 10^3/uL Monocytes # (Auto) 0.6 0.0-1.0 10^3/uL Eosinophils # (Auto) 0.0 0.0-0.3 10^3/uL Basophils # (Auto) 0.0 0.0-0.1 10^3/uL Immature Granulocyte # (Auto) 0.0 0.0-0.1 10^3/uL Erythrocyte Sedimentation Rate 35 H 0-30 MM/HR Prothrombin Time 13.3 12.2-14.7 SEC INR Comment 1.0 0.8-1.4 Activated Partial Thromboplast Time 39 H 24-35 SEC D-Dimer 1.67 H 0.00-0.49 UG/ML Sodium Level 133 L 135-145 MMOL/L Potassium Level 3.8 3.6-5.0 MMOL/L Chloride Level 100 98-107 MMOL/L Carbon Dioxide Level 20 L 21-32 MMOL/L Anion Gap 13 5-14 MMOL/L Blood Urea Nitrogen 21 H 7-18 MG/DL Creatinine 1.07 0.60-1.30 MG/DL Estimat Glomerular Filtration Rate 52 BUN/Creatinine Ratio 20 Glucose Level 90 70-105 MG/DL Lactic Acid Level 1.02 0.50-2.00 MMOL/L Calcium Level 9.2 8.5-10.1 MG/DL Corrected Calcium 9.3 8.5-10.1 MG/DL Magnesium Level 2.1 1.6-2.4 MG/DL Total Bilirubin 0.8 0.1-1.0 MG/DL Aspartate Amino Transf (AST/SGOT) 119 H 5-34 U/L Alanine Aminotransferase (ALT/SGPT) 108 H 0-55 U/L Alkaline Phosphatase 104 40-136 U/L Troponin I < 0.028 <0.028 NG/ML C-Reactive Protein High Sensitivity 0.84 H 0.00-0.50 MG/DL B-Type Natriuretic Peptide 215.2 H <100.0 PG/ML Total Protein 7.1 6.4-8.2 GM/DL Albumin 3.9 3.2-4.5 GM/DL Lipase 19 8-78 U/L Procalcitonin 35.02 H <0.10 NG/ML TSH [facility] Testing 3.08 0.35-4.94 UIU/ML Urine Color YELLOW Urine Clarity CLEAR Urine pH 7.0 5-9 Urine Specific [place] 1.010 L 1.016-1.022 Urine Protein NEGATIVE NEGATIVE Urine Glucose (UA) NEGATIVE NEGATIVE Urine Ketones 1+ H NEGATIVE Urine Nitrite NEGATIVE NEGATIVE Urine Bilirubin NEGATIVE NEGATIVE Urine Urobilinogen 0.2 < = 1.0 MG/DL Urine Leukocyte Esterase 2+ H NEGATIVE Urine RBC (Auto) NEGATIVE NEGATIVE Urine RBC 2-5 H /HPF Urine WBC 0-2 /HPF Urine Squamous Epithelial Cells 2-5 /HPF Urine Crystals NONE /LPF Urine Bacteria FEW H /HPF Urine Casts NONE /LPF Urine Mucus NEGATIVE /LPF Urine Culture Indicated CULTURE PENDING My Orders Orders - RALPH SANCHEZ DO Ed Iv/Invasive Line Start (03/03/22 22:42) Ekg Tracing (03/03/22 22:42) Monitor-Rhythm Ecg Trace Only (03/03/22 22:42) Chest 1 View, Ap/Pa Only (03/03/22 22:42) Bnp [facility] (03/03/22 22:42) Cbc With Automated Diff (03/03/22 22:42) Comprehensive Metabolic Panel (03/03/22 22:42) Hs C Reactive Protein (03/03/22 22:42) Lactic Acid Analyzer (03/03/22 22:42) Lipase (03/03/22 22:42) Magnesium (03/03/22 22:42) Procalcitonin (Pct) (03/03/22 22:42) Thyroid Analyzer (03/03/22 22:42) Ua Culture If Indicated (03/03/22 22:42) Erythrocyte Sedimentation Rate (03/03/22 22:42) Troponin I Carol (03/03/22 22:42) Blood Culture (03/03/22 22:42) Sputum Culture (03/03/22 22:42) Urine Culture (03/03/22 22:42) Protime With Inr (03/03/22 22:42) Partial Thromboplastin Time (03/03/22 22:42) Ed Iv/Invasive Line Start (03/03/22 22:42) Vital Signs Adult Sepsis Patie Q15M (03/03/22 22:42) Remove Rings In Anticipation O (03/03/22 22:42) Ed Iv/Invasive Line Start (03/03/22 22:42) Lactated Ringers (Lr 1000 Ml Iv Solution (03/03/22 22:45) Fibrin Degradation Products (03/03/22 23:00) Medications Given in ED Current Medications Medications Dose Ordered Sig/Earnestine Route Start Time Stop Time Status Last Admin Dose Admin Lactated Ringer's 1,000 ml @ 0 mls/hr Q0M ONCE IV 03/03/22 22:45 03/03/22 22:46 DC 03/03/22 23:45 999 MLS/HR Vital Signs/I&O Capillary Refill : Progress Note : Progress Note PLACED IN ISOLATION ROOM PPE WORN PT SLEPT FOR ENTIRE ER STAY, WITH HER COAT OVER HER HEAD PT HAD NO COMPLAINTS OR SYMPTOMS DURING ER STAY VITALS STABLE Departure Impression Primary Impression: UTI (urinary tract infection) Disposition: 01 HOME, SELF-CARE Condition: Stable Departure-Patient Inst. Decision time for Depature: 02:15 Referrals: BRUCE BLUNT DO (PCP/Family) Primary Care Physician Patient Instructions: Urinary Tract Infection, Adult (DC) Add. Discharge Instructions: LOTS OF CLEAR LIQUIDS FOLLOW UP WITH DR. BLUNT IN 2-3 DAYS FOR FURTHER CARE, RETURN TO ER IF WORSE Scripts Cefdinir (Cefdinir) 300 Mg Capsule 300 MG PO BID, #20 CAP Prov: RALPH SANCHEZ DO 03/04/22 RALPH SANCHEZ DO Mar 03, 2022 22:54
[2022-03-03 23:14] LABS: BASOPHILS % (AUTO) 0 % (0-10); EOSINOPHILS % (AUTO) 0 % (0-10); HEMATOCRIT 33 % (35-52); HEMOGLOBIN 10.7 g/dL (11.5-16.0); LYMPHOCYTES # (AUTO) 2.1 10^3/uL (1.0-4.0); LYMPHOCYTES % (AUTO) 25 % (12-44); MEAN CORPUSCULAR HEMOGLOBIN 29 pg (25-34); MEAN CORPUSCULAR HGB CONC 33 g/dL (32-36); MEAN CORPUSCULAR VOLUME 87 fL (80-99); MEAN PLATELET VOLUME 9.5 fL (9.0-12.2); MONOCYTES # (AUTO) 0.6 10^3/uL (0.0-1.0); MONOCYTES % (AUTO) 8 % (0-12); NEUTROPHILS # (AUTO) 5.7 10^3/uL (1.8-7.8); NEUTROPHILS % (AUTO) 67 % (42-75); PLATELET COUNT 328 10^3/uL (130-400); WHITE BLOOD COUNT 8.5 10^3/uL (4.3-11.0)
[2022-03-03 23:23] LABS: ALBUMIN 3.9 GM/DL (3.2-4.5); CHLORIDE 100 MMOL/L (98-107); POTASSIUM 3.8 MMOL/L (3.6-5.0); PROTHROMBIN TIME PATIENT 13.3 SEC (12.2-14.7); SODIUM 133 MMOL/L (135-145)
[2022-03-03 23:25] LABS: CALCIUM 9.2 MG/DL (8.5-10.1)
[2022-03-03 23:26] LABS: GLUCOSE 90 MG/DL (70-105); TOTAL PROTEIN 7.1 GM/DL (6.4-8.2)
[2022-03-03 23:27] LABS: CARBON DIOXIDE 20 MMOL/L (21-32)
[2022-03-03 23:28] LABS: BILIRUBIN,TOTAL 0.8 MG/DL (0.1-1.0)
[2022-03-03 23:29] LABS: ALKALINE PHOSPHATASE 104 U/L (40-136); ERYTHROCYTE SEDIMENTATION RATE 35 MM/HR (0-30)
[2022-03-03 23:30] LABS: CREATININE SERUM 1.07 MG/DL (0.60-1.30); GFR ESTIMATED 52
[2022-03-03 23:31] LABS: BUN/CREATININE RATIO 20
[2022-03-03 23:32] LABS: ALANINE AMINOTRANSFERASE 108 U/L (0-55); MAGNESIUM 2.1 MG/DL (1.6-2.4)
[2022-03-03 23:33] LABS: LIPASE 19 U/L (8-78)
[2022-03-03 23:44] LABS: FIBRIN DEGRADATION PRODUCTS 1.67 UG/ML (0.00-0.49)
[2022-03-03 23:53] LABS: TSH (THYROID ANALYZER) 3.08 UIU/ML (0.35-4.94)
[2022-03-04 01:24] LABS: BILIRUBIN,URINE NEGATIVE (NEGATIVE); CLARITY,URINE CLEAR; GLUCOSE, URINE (UA) NEGATIVE (NEGATIVE); KETONES,URINE 1+ (NEGATIVE); LEUKOCYTE ESTERASE ,URINE 2+ (NEGATIVE); NITRITE,URINE NEGATIVE (NEGATIVE); PROTEIN,URINE NEGATIVE (NEGATIVE)
[2022-03-04 01:40] LABS: BACTERIA,URINE FEW /HPF; COLOR,URINE YELLOW; WBC,URINE 0-2 /HPF
[2022-03-04] MEDS ORDERED: CEFD300C3 PO (02:16)
[2022-03-04 02:25] VITALS: BP 137/53
[2022-03-04] MEDS ORDERED: CEFDINIR 300 MG (OMNICEF) CAP PO ONE (02:30)
--- NOTE | 2022-03-04 06:34 | Diagnostic Imaging Report ---
INDICATION: Fever. Compared 01/31/2022. FINDINGS: No focal consolidation, failure pattern, effusion or pneumothorax. IMPRESSION: No acute or focal abnormality identified. Dictated by: Dictated on workstation # [id number]
== END 2022-03-04 02:25 | disposition home or self-care (01) ==
LOC: EDUNIT# 20:35 → ER 20:38
DX: N39.0 Urinary tract infection, site not specified (principal); Z28.310 Unvaccinated for COVID-19
CPT/HCPCS: 36415; 71045; 80053; 81000; 83605; 83690; 83735; 83880; 84145; 84443; 84484; 85025; 85379; 85610; 85652; 85730; 86141; 87040; 87088; 93005; 93041